=== PATIENT | female | born 2005 | race Two or more races ===

== ENCOUNTER 2025-07-09 17:16 | Emergency (ER) | payer MEDICAID ==
[~2025-07-09] VITALS: Ht 162.6 cm; Wt 63.6 kg
[2025-07-09 17:42] VITALS: BP 148/95; PULSE 108; RESP 18; TEMP 97.7; O2SAT 99
[2025-07-09 17:56] LABS: PLATELET COUNT (AUTO) 273 K/uL (150-450); RED BLOOD CELL COUNT(AUTO) 4.38 MIL/uL (4.00-5.20); RED CELL DISTRIBUTION WIDTH 14.5 % (11.5-14.5); WHITE BLOOD COUNT (AUTO) 8.6 K/uL (4.5-11.0)
[2025-07-09 18:15] LABS: CALCIUM, TOTAL 9.4 mg/dL (8.8-10.5); CREATININE 0.81 mg/dL (0.60-1.30); GLOMERULAR FILTR. RATE CALC > 60 mL/min (>60); GLUCOSE,RANDOM 100 mg/dL (70-110); SODIUM SERUM 139 mmol/L (136-145); UREA NITROGEN, BLOOD 11 mg/dL (7-18)
[2025-07-09] MEDS ORDERED: HYDR-4808 PO (19:24)
== END 2025-07-09 19:39 | disposition home or self-care (01) ==
LOC: EMS 17:16
DX: R41.9 Unspecified symptoms and signs involving cognitive functions and awareness (principal); R00.2 Palpitations; Z79.899 Other long term (current) drug therapy
CPT/HCPCS: 80048; 84703; 85025; 93005; 99284